=== PATIENT | female | born 1995 | race Caucasian/White ===

== ENCOUNTER 2017-03-21 15:00 | Emergency (ER) | payer OTHER ==
[~2017-03-21] VITALS: Ht 157.5 cm; Wt 45.0 kg
[2017-03-21 15:10] VITALS: Ht 157.5 cm; Wt 45.0 kg
--- NOTE | 2017-03-21 16:43 | ERD ---
ER Documentation Chief Complaint Chief Complaint Painful urination, burning after urinating x 3 days HPI This is a 21-year-old female who presents emergency department today complaining of pain with urination for the past 2 days. States it started after her period ended 2 days ago. States that she also has some burning around her vaginal area. She also has some vaginal discharge that she always has it and has since she was little. Has been sexually active currently. Denies any fevers or chills, vomiting, back pain ROS All systems reviewed and are negative except as per history of present illness. Medications Home Meds Active Scripts Mupirocin* (Bactroban*) 2% -22 Gram Oint...g., 1 APPLIC TOP TID for 7 Days, #1 TUB SITE OF APPLICATION: Prov:ERON LEMON PA-C 03/21/17 Cephalexin* (Keflex*) 500 Mg Capsule, 500 MG PO QID for 7 Days, CAP Prov:ERON LEMON PA-C 03/21/17 Reported Medications [none] Unknown Strength No Conflict Check 10/01/15 Allergies Allergies: Coded Allergies: Penicillins (Verified Allergy, Unknown, 05/16/14) PMhx/Soc History of Surgery: No Anesthesia Reaction: No Hx Neurological Disorder: No Hx Respiratory Disorders: No Hx Cardiac Disorders: No Hx Psychiatric Problems: No Hx Miscellaneous Medical Probl: No Hx Alcohol Use: No Hx Substance Use: No Hx Tobacco Use: No Physical Exam Vitals Vital Signs Date Time Temp Pulse Resp B/P Pulse Ox O2 Delivery O2 Flow Rate FiO2 03/21/17 15:10 99.1 94 20 112/86 99 Physical Exam Const: NAD Head: Atraumatic Eyes: Normal Conjunctiva ENT: Normal External Ears, Nose and Mouth. Neck: Full range of motion..~ No meningismus. Resp: Clear to auscultation bilaterally Cardio: Regular rate and rhythm, no murmurs Abd: Soft, non tender, non distended. Normal bowel sounds : external vaginal exam with evidence of folliculitis where patient has been shaving lesions or masses. No evidence of yeast. Skin: Folliculitis external vagina and vulva and mons pubis Back: No midline or flank tenderness Ext: No cyanosis, or edema Neur: Awake and alert Psych: Normal Mood and Affect Results 24 hrs Laboratory Tests Test 03/21/17 16:50 Bedside Urine pH (LAB) 5.5 Bedside Urine Protein (LAB) Negative Bedside Urine Glucose (UA) Negative Bedside Urine Ketones (LAB) 2+ Bedside Urine Blood 2+ Bedside Urine Nitrite (LAB) Negative Bedside Urine Leukocyte Esterase (L 3+ Current Medications Medications (Trade) Dose Ordered Sig/Lauren Route PRN Reason Start Time Stop Time Status Last Admin Dose Admin Cephalexin (Keflex) 500 mg ONCE ONCE PO 03/21/17 17:00 03/21/17 17:01 DC 03/21/17 17:01 Procedures/MDM This a 21-year-old female who presents the emergency department today complaining of pain with urination for the past 2 days. Patient was also complaining of some burning in her vaginal area. External vaginal exam shows folliculitis in the patient's vaginal area from shaving. There are no other lesions or rashes and I have low suspicion for herpes, abscess. I did do a urine dip. UA shows 3+ leukocyte esterase and 2+ blood and patient indicated she stopped her menstrual cycle 2 days ago. Patient is afebrile and otherwise well-appearing. She has no back pain, vomiting or abdominal pain. Low suspicion for pyelonephritis or nephrolithiasis. Patient did have some hematuria that might be from her urinary tract infection versus her menstrual cycle as she did completed 2 days ago. Patient's medical records states that she has an allergy to penicillin. I did question her about this and she stated that she did not know about that other than she was told that she had some sort of reaction when she was a kid. Patient was given first dose of Keflex here in the emergency department as I feel that is the best medication to treat the patient is a will cover her for the folliculitis as well as the urinary tract infection. Patient was watched for 30 minutes here in the emergency department and there were no reactions. Patient was discharged home with a prescription for Keflex and Bactroban for folliculitis and urinary tract infection. At this time the patient is stable for discharge and outpatient management. Patient should follow up with their PCP in the next 1-2 days. They may return to the emergency department sooner for any persistent or worsening of symptoms. Patient understood and agreed with the plan. Departure Diagnosis: Primary Impression: UTI (urinary tract infection) Urinary tract infection type: site unspecified Hematuria presence: with hematuria Qualified Code: N39.0 - Urinary tract infection with hematuria, site unspecified Additional Impression: Folliculitis Condition: Fair ERON LEMON PA-C Mar 21, 2017 16:43
[2017-03-21 16:49] LABS: URINE BLOOD (Dip) POC 2+ (NEGATIVE)
[2017-03-21] MEDS ORDERED: CEPH-443 PO (16:58)
[2017-03-21] MEDS ORDERED: CEPHALEXIN 500 MG CAP PO ONE (17:00)
[2017-03-21] MEDS ORDERED: MUPI22OI2 TOP (17:01)
== END 2017-03-21 17:30 | disposition home or self-care (01) ==
LOC: FTE 15:00
DX: N39.0 Urinary tract infection, site not specified (principal); L73.9 Follicular disorder, unspecified
CPT/HCPCS: 81003; Z7610; 99284